=== PATIENT | male | born 1990 | race Caucasian/White ===

== ENCOUNTER 2018-06-20 17:21 | Emergency (ER) | payer BC, MEDICAID ==
[2018-06-20] MEDS ORDERED: LORazepam 1 MG TAB PO ONE (17:36)
--- NOTE | 2018-06-20 17:39 | EDPHY ---
H & P Stated Complaint: States in class had sudden onset of panic atack. States shakey. Time Seen by Provider: 06/20/18 17:31 HPI/ROS: CHIEF COMPLAINT: Anxiety attack HISTORY OF PRESENT ILLNESS: Patient is a 28-year-old man with a history of ADD and a family history of anxiety who comes to the emergency department stating that he is having a panic attack. He states that he was sitting in physics class and felt well throughout the day today until about an hour ago when he became very nervous and anxious and started shaking. He denies having any pain. He denies shortness of breath or lightheadedness or headache. No recent dietary changes. He has been eating well. He has not had any recent illness or infection. He does not take any medications and has not used any drugs. He does work at [employer]) and states that he drinks caffeine regularly but has not had more than usual today. He does feel slightly nauseous but has not vomited. No diarrhea. Severity: Moderate Modifying factors: None REVIEW OF SYSTEMS: Constitutional: denies: chills, fever, recent illness, recent injury EENTM: denies: blurred vision, double vision, nose congestion Respiratory: denies: cough, shortness of breath Cardiac: denies: chest pain, irregular heart rate, lightheadedness, palpitations Gastrointestinal/Abdominal: denies: abdominal pain, diarrhea, nausea, vomiting, blood streaked stools Genitourinary: denies: dysuria, frequency, hematuria, pain Musculoskeletal: denies: joint pain, muscle pain Skin: denies: lesions, rash, jaundice, bruising Neurological: denies: headache, numbness, paresthesia, tingling, dizziness, weakness Hematologic/Lymphatic: denies: blood clots, easy bleeding, easy bruising Immunologic/allergic: denies: HIV/AIDS, transplant 10 systems reviewed and negative except as noted EXAM: GENERAL: Anxious, moderate distress HEAD: Atraumatic, normocephalic. EYES: Pupils equal round and reactive to light, extraocular movements intact, sclera anicteric, conjunctiva are normal. ENT: TMs normal, nares patent, oropharynx clear without exudates. Moist mucous membranes. NECK: Normal range of motion, supple without lymphadenopathy or JVD. LUNGS: Breath sounds clear saturating 99% on room air HEART: Tachycardic without murmurs, rubs or gallops. ABDOMEN: Soft, nontender, normoactive bowel sounds. No guarding, no rebound. No masses appreciated. BACK: No CVA tenderness, no spinal tenderness, step-offs or deformities EXTREMITIES: Normal range of motion, no pitting or edema. No clubbing or cyanosis. NEUROLOGICAL: Cranial nerves II through XII grossly intact. Normal speech, normal gait. 5/5 strength, normal movement in all extremities, normal sensation , normal reflexes PSYCH: Anxious, shaking SKIN: Warm, dry, normal turgor, no visible rashes or lesions. Source: Patient Exam Limitations: No limitations - Personal History Current Tetanus Diphtheria and Acellular Pertussis (TDAP): Unsure Tetanus Vaccine Date: within last 10 years - Medical/Surgical History Hx Asthma: No Hx Chronic Respiratory Disease: No Hx Diabetes: No Hx Cardiac Disease: No Hx Renal Disease: No Hx Cirrhosis: No Hx Alcoholism: No Hx HIV/AIDS: No Hx Splenectomy or Spleen Trauma: No Other PMH: Med hx-ADHD. Surg-tonsils,appy - Family History Significant Family History: No pertinent family hx - Social History Smoking Status: Never smoked Alcohol Use: None Constitutional: Initial Vital Signs Temperature (C) 36.5 C 06/20/18 17:26 Heart Rate 124 H 06/20/18 17:26 Respiratory Rate 18 06/20/18 17:26 Blood Pressure 153/100 H 06/20/18 17:26 O2 Sat (%) 99 06/20/18 17:26 O2 Delivery Mode Room Air Allergies/Adverse Reactions: No Known Allergies Allergy (Verified 06/20/18 17:25) Home Medications: Medication Instructions Recorded LORazepam [Ativan 1 mg (RX)] 1 mg PO Q6-8PRN PRN #10 tab 06/20/18 Medical Decision Making - Diagnostics EKG Interpretation: An EKG obtained and was read and documented in trace view. Please see trace view for full reading and report. Sinus tachycardia, no acute ischemic changes or arrhythmias ED Course/Re-evaluation: 7:10 p.m. the patient is feeling completely better. He is eager to go home. He declines further workup or testing at this time. We discussed indications for returning. He does request a short prescription for p.r.n. Ativan. He follows up with his primary care doctor next week. Differential Diagnosis: Partial list of the Differential diagnosis considered include but were not limited to; anxiety, arrhythmia and although unlikely based on the history and physical exam, I also considered infection, electrolyte abnormality, acute coronary disease. I discussed these differential diagnoses and the plan with the patient as well as the usual and expected course. The patient understands that the diagnosis is provisional and that in medicine we are not always correct and that further workup is often warranted. Usual and customary warnings were given. All of the patient's questions were answered. The patient was instructed to return to the emergency department should the symptoms at all worsen or return, otherwise to followup with the physician as we discussed. - Data Points Medications Given: Discontinued Medications Lorazepam (Ativan) 2 mg PO EDNOW ONE Stop: 06/20/18 17:37 Last Admin: 06/20/18 17:39 Dose: 2 mg Departure - Departure Disposition: Home, Routine, Self-Care Clinical Impression: Panic attack Condition: Fair Instructions: Panic Attack (ED) Referrals: NONE *PRIMARY CARE P,. [Primary Care Provider] - As per Instructions Lenard Lopez DO [Doctor of Osteopathy] - As per Instructions Prescriptions: LORazepam [Ativan 1 mg (RX)] 1 mg PO Q6-8PRN PRN #10 tab PRN Reason: *Anxiety/Agitation/Insomnia
--- NOTE | 2018-06-20 18:08 | CPEKG ---
Test Reason : OPEN Blood Pressure : / mmHG Vent. Rate : 112 BPM Atrial Rate : 112 BPM P-R Int : 180 ms QRS Dur : 093 ms QT Int : 317 ms P-R-T Axes : 070 017 045 degrees QTc Int : 433 ms Sinus tachycardia Confirmed by Tommy Francis ([id number]) on 06/20/2018 6:07:31 PM Referred By: TOMMY FRANCIS Confirmed By:Tommy Francis
[2018-06-20 19:50] VITALS: BP 139/82
== END 2018-06-20 19:54 | disposition home or self-care (01) ==
LOC: CED 17:21
DX: F41.0 Panic disorder [episodic paroxysmal anxiety] (principal)
CPT/HCPCS: 99283-ER